=== PATIENT | female | born 1965 | race Asian ===

== ENCOUNTER 2021-10-22 16:30 | Outpatient (CLI) | payer BC ==
--- NOTE | 2021-10-22 17:50 | XRAY Report ---
PROCEDURE: Cervical Spine w/Flex/Ext INDICATIONS: NUMBNESS/TINGLING RIGHT ARM TECHNIQUE: 7 views of the cervical spine were acquired. COMPARISON: None. FINDINGS: Bones: No fractures or dislocations to the T1 level. No suspicious bony lesions. There is normal r jj of motion between flexion and extension, with preserved normal bony alignment. Mild C5-C6 degene rative disc changes. Oblique views demonstrate no osseous foraminal narrowing. Soft tissues: Prevertebral soft tissues are normal in thickness. IMPRESSION: 1. Mild C5-C6 degenerative disc disease. 2. No fracture. No acute osseous lesion. If there is continued clinical concern for pathology, then M RI should be considered for further evaluation. Reviewed by: Blanquita Barrientos MD, PhD on 10/22/2021 5:48 PM PST Approved by: Blanquita Barrientos MD, PhD on 10/22/2021 5:48 PM PST Station ID: [id number]
--- NOTE | 2021-10-22 17:54 | XRAY Report ---
PROCEDURE: Hand 3 View RT INDICATIONS: NUMBNESS/TINGLING RIGHT ARM TECHNIQUE: 3 views of the hand(s) acquired. COMPARISON: None FINDINGS: Bones: No fractures or dislocations. No suspicious bony lesions. Soft tissues: No suspicious soft tissue calcifications. IMPRESSION: Normal right hand Reviewed by: Krishna Valdovinos on 10/22/2021 5:52 PM PST Approved by: Krishna Valdovinos on 10/22/2021 5:52 PM [facility] Station ID: [id number]
== END 2021-10-22 23:59 | disposition home or self-care (01) ==
LOC: DI.WOS 16:30
PROVIDERS: ATTEND Physician Assistant
DX: M50.322 Other cervical disc degeneration at C5-C6 level (principal); M79.641 Pain in right hand